=== PATIENT | male | born 1960 | race Caucasian/White ===

== ENCOUNTER 2024-07-07 16:47 | Emergency (ER) | payer MEDICAID ==
[~2024-07-07] VITALS: Ht 190.5 cm; Wt 144.6 kg
[2024-07-07 17:02] VITALS: TEMP 98.2
[2024-07-07] MEDS ORDERED: FOLI0.4T6 PO (17:06)
[2024-07-07] MEDS ORDERED: FURO40TA6 PO (17:06)
[2024-07-07] MEDS ORDERED: METO25XL PO (17:06)
[2024-07-07] MEDS ORDERED: APIX2.5T PO (17:06)
[2024-07-07] MEDS ORDERED: DILT30TA3 PO (17:06)
[2024-07-07 20:30] LABS: BASOPHILS % (AUTO) 0.7 % (0.0-2.0); EOSINOPHILS % (AUTO) 1.7 % (1.0-6.0); HEMATOCRIT 35.3 % (41-53); HEMOGLOBIN 11.7 g/dL (13.5-17.5); LYMPHOCYTES % (AUTO) 12.6 % (22.0-44.0); MEAN CORPUSCULAR HEMOGLOBIN 32.7 pg (26.0-34.0); MEAN CORPUSCULAR HGB CONC 33.1 G/dL (31.0-37.0); MEAN CORPUSCULAR VOLUME 99 fL (80-100); MONOCYTES # (AUTO) 0.7 K/uL (0.1-1.0); MONOCYTES % (AUTO) 8.5 % (2.0-9.0); NEUTROPHILS # (AUTO) 5.8 K/uL (1.8-7.7); NEUTROPHILS % (AUTO) 76.5 % (40.0-70.0); PLATELET COUNT (AUTO) 192 K/uL (150-450); RED BLOOD CELL COUNT(AUTO) 3.58 MIL/uL (4.50-5.90); RED CELL DISTRIBUTION WIDTH 16.2 % (11.5-14.5); WHITE BLOOD COUNT (AUTO) 7.6 K/uL (4.5-11.0)
[2024-07-07 20:36] LABS: CALCIUM, TOTAL 8.6 mg/dL (8.8-10.5); CREATININE 1.45 mg/dL (0.60-1.30); POTASSIUM 4.1 mmol/L (3.5-5.1)
[2024-07-07 20:53] LABS: TROPONIN I-HIGH SENSITIVITY 6 ng/L (<76)
[2024-07-07 21:01] LABS: ALBUMIN 3.5 g/dL (3.4-5.0); BILIRUBIN,TOTAL 0.8 mg/dL (0.1-1.0); TOTAL PROTEIN, SERUM 8.3 g/dL (6.4-8.2)
[2024-07-07 21:45] LABS: APPEARANCE,URINE CLEAR (CLEAR); BILIRUBIN,URINE NEGATIVE (NEGATIVE); COLOR,URINE YELLOW (YELLOW); GLUCOSE, URINE (UA) NEGATIVE (NEGATIVE); KETONES,URINE NEGATIVE (NEGATIVE); LEUKOCYTE ESTERASE ,URINE LARGE (NEGATIVE); NITRATE,URINE NEGATIVE (NEGATIVE); OCCULT BLOOD,URINE SMALL (NEGATIVE); PH,URINE 6.5 (5.0-8.0); PROTEIN,URINE 30-70 mg/dL (NEGATIVE); SPECIFIC GRAVITIY, URINE 1.019 (1.003-1.030)
[2024-07-07 22:02] LABS: BACTERIA,URINE None Seen /HPF (None Seen); RBC,URINE 0-2 /HPF (0-2); WBC,URINE Full Field /HPF (0-5)
[2024-07-07 22:49] LABS: PROTHROMBIN TIME 11.3 SEC (9.4-11.6)
[2024-07-07 22:53] LABS: TROPONIN I-HIGH SENSITIVITY 7 ng/L (<76)
[2024-07-08] MEDS ORDERED: CEPH-558 PO (00:16)
[2024-07-08 00:19] VITALS: BP 124/74; PULSE 89; RESP 20; O2SAT 99
[2024-07-08] MEDS: CEPHALEXIN MONOHYDRATE 500 MG CAPSULE PO ONE (00:22)
== END 2024-07-08 00:45 | disposition home or self-care (01) ==
LOC: EMS 16:47
DX: N39.0 Urinary tract infection, site not specified (principal); R19.7 Diarrhea, unspecified; R53.1 Weakness; R51.9 Headache, unspecified; I11.0 Hypertensive heart disease with heart failure; I50.9 Heart failure, unspecified; Z88.0 Allergy status to penicillin; Z79.01 Long term (current) use of anticoagulants; Z86.73 Personal history of transient ischemic attack (TIA), and cerebral infarction without residual deficits; Z79.899 Other long term (current) drug therapy
CPT/HCPCS: 70450; 71045; 80053; 81001; 82550; 83690; 83880; 84484; 85025; 85610; 85730; 87086; 93005; 99285; 36415-L1; 36415-TC